=== PATIENT | female | born 1960 | race Caucasian/White ===

== ENCOUNTER 2025-01-29 06:25 | Day surgery (SDC) | payer MEDICARE, SELFPAY | END 2025-01-29 10:58 | disposition home or self-care (01) | LOC: GI 06:25 | PROVIDERS: ATTENDING PHYSICIAN Internal Medicine Gastroenterology | DX: Z12.11 Encounter for screening for malignant neoplasm of colon (principal); K55.20 Angiodysplasia of colon without hemorrhage; D12.5 Benign neoplasm of sigmoid colon; K63.5 Polyp of colon; Z83.719 Family history of colon polyps, unspecified | CPT/HCPCS: 45385; 45380; 88305 ==

== ENCOUNTER → 2025-09-03 18:02 | Outpatient (REF) | payer MEDICARE, SELFPAY | LOC: CLAB 18:02 | PROVIDERS: ATTENDING PHYSICIAN Podiatrist Foot Surgery; FAMILY PHYSICIAN Family Medicine | DX: G57.61 Lesion of plantar nerve, right lower limb (principal) | CPT/HCPCS: 88304 ==